=== PATIENT | female | born 1940 | race Caucasian/White ===

== ENCOUNTER 2019-03-29 08:48 | Outpatient (CLI) | payer OTHER ==
[~2019-03-29 08:48] MED LIST: NABUMETONE500 MG PO; PERCOCET 5/3251 TAB PO
== END 2019-03-29 08:58 | disposition home or self-care (01) ==
LOC: SONOGRAMA 08:48
DX: R10.10 Upper abdominal pain, unspecified (principal)

== ENCOUNTER 2021-08-08 09:08 | Outpatient (CLI) | payer OTHER | END 2021-08-08 09:14 | disposition home or self-care (01) | LOC: SONOGRAMA 09:08 | PROVIDERS: ATTEND Family Medicine | DX: Q61.01 Congenital single renal cyst (principal); N28.89 Other specified disorders of kidney and ureter ==